=== PATIENT | female | born 1960 | race Caucasian/White ===

== ENCOUNTER 2024-08-23 06:47 | Emergency (ER) | payer SELFPAY ==
[~2024-08-23] VITALS: Ht 162.6 cm; Wt 92.0 kg
[~2024-08-23 06:47] MED LIST: CITALOPRAM HBR40 MG PO; CYCLOBENZAPRIN7.5 MG PO; HYDROCODON-ACE1 EAC8 PO; LEVOTHYROXINE25 MCG PO; LISINOPRIL2.5 MG PO; XANAX0.25 MG PO
[2024-08-23 07:09] LABS: BASOPHILS 0.9 % (0-2); EOSINOPHILS 2.9 % (0-6); HEMATOCRIT 45.3 % (35.0-50.0); HEMOGLOBIN 15.5 g/dL (12.0-18.0); LYMPHOCYTES 12.5 % (24-44); MCH 31.2 (27-36); MCHC 34.2 g/dl (30-36); MCV 91.1 fl (81-99); NEUTROPHILS 75.7 % (39-80); PLATELET COUNT 216 K/uL (140-440); RBC 4.97 M/ul (4.3-5.7); RDW 14.7 (10.5-15.0)
[2024-08-23 07:28] LABS: ALBUMIN 4.3 g/dL (3.4-5.0); ALBUMIN/GLOBULIN RATIO 1.65 (1.1-2.4); ANION GAP 10.9 (7-21); BILIRUBIN, TOTAL 0.7 mg/dL (0.2-1.0); BUN/CREATININE RATIO 16.21 (6.0-28.6); CALCIUM 8.9 mg/dL (8.5-10.1); CREATININE, SERUM 0.74 mg/dL (0.55-1.02); POTASSIUM 3.9 mmol/L (3.5-5.1); PROTEIN, TOTAL 6.9 g/dL (6.4-8.2)
[2024-08-23] MEDS ORDERED: FUROSEMIDE 40 MG TAB PO ONE (07:45)
[2024-08-23] MEDS ORDERED: POTASSIUM CHLORIDE 10 MEQ TABCR PO ONE (07:45)
[2024-08-23] MEDS ORDERED: FUROSEMIDE40 MG PO (07:49)
[2024-08-23] MEDS ORDERED: KLOR-CON M2020 MEQ PO (07:49)
[2024-08-23 08:03] VITALS: BP 185/103
--- NOTE | 2024-08-23 18:06 | EKG ---
[facility] [address] [place], [place] [address] Signed Sinus rhythm with occasional premature ventricular complexes Right atrial enlargement Borderline ECG No previous ECGs available Confirmed by Lily Pal MD ([id number]) on 08/23/2024 6:06:09 PM Electronically Signed By: LILY PAL MD 08/23/24 180 PATIENT NAME: MEME POWELL Electrocardiogram DATE OF : 60 PHYSICIAN: LILY PAL MD REPORT #: [id number] REPORT IS CONFIDENTIAL AND NOT TO BE RELEASED WITHOUT AUTHORIZATION
== END 2024-08-23 08:03 | disposition home or self-care (01) ==
LOC: ED 06:47
PROVIDERS: Emergency Medicine
DX: I11.0 Hypertensive heart disease with heart failure (principal); I50.9 Heart failure, unspecified; F17.200 Nicotine dependence, unspecified, uncomplicated
CPT/HCPCS: 36415; 71045; 80053; 83880; 84484; 85025; 93005; 93010; 99285-25; A9270